=== PATIENT | female | born 1965 | race Caucasian/White ===

== ENCOUNTER 2017-04-23 20:41 | Emergency (ER) | payer OTHER ==
[~2017-04-23] VITALS: Ht 162.6 cm; Wt 68.0 kg
--- NOTE | 2017-04-23 21:01 | PHYS DOC ---
Adult General Chief Complaint Chief Complaint: Palpitations HPI HPI Patient is a 51 year old F who presents with heart palpitations for the past 5 days. Patient states she's been having increasing episodes of heart palpitations where she describes her heart racing and causing chest pain that lasts for less than a minute. Patient states it is not related to food or exercise. Patient states she usually drinks 1 caffeinated drink a day. Patient denies any heart history. Patient denies any risk factors for DVT. Patient does not smoke. Patient is asymptomatic in the emergency room. Patient came the emergency room tonight because her family doctor sent her. Review of Systems Review of Systems GEN: Denies fevers, chills, sweats HEENT: Denies blurred vision, sore throat CV: Palpitations RESP: Denies shortness of air, cough GI: Denies n/v/d NEURO: Denies confusion, dizziness MSK: Denies weakness, joint pain/swelling Physical Exam Physical Exam GEN.: No apparent distress. Alert and oriented. HEENT: Head is normocephalic, atraumatic NECK: Supple. LUNGS: CTAB. HEART: RRR, S1, S2 present. Peripheral pulses intact ABDOMEN: Soft, nontender. Positive bowel sounds. EXTREMITIES: Without any cyanosis. NEUROLOGIC: Normal speech, normal tone PSYCHIATRIC: Normal affect, normal mood. SKIN: No ulcerations Current Patient Data Lab Results Laboratory Tests Test 04/23/17 21:05 White Blood Count 8.7 x10^3/uL Red Blood Count 4.47 x10^6/uL Hemoglobin 13.5 g/dL Hematocrit 39.7 % Mean Corpuscular Volume 89 fL Mean Corpuscular Hemoglobin 30 pg Mean Corpuscular Hemoglobin Concent 34 g/dL Red Cell Distribution Width 12.7 % Platelet Count 221 x10^3/uL Neutrophils (%) (Auto) 56 % Lymphocytes (%) (Auto) 35 % Monocytes (%) (Auto) 8 % Eosinophils (%) (Auto) 1 % Basophils (%) (Auto) 1 % Neutrophils # (Auto) 4.9 x10^3uL Lymphocytes # (Auto) 3.0 x10^3/uL Monocytes # (Auto) 0.6 x10^3/uL Eosinophils # (Auto) 0.1 x10^3/uL Basophils # (Auto) 0.0 x10^3/uL Sodium Level 141 mmol/L Potassium Level 3.6 mmol/L Chloride Level 104 mmol/L Carbon Dioxide Level 27 mmol/L Anion Gap 10 Blood Urea Nitrogen 9 mg/dL Creatinine 0.8 mg/dL Estimated GFR (Cockcroft-Gault) 76.2 BUN/Creatinine Ratio 11 Glucose Level 107 mg/dL Calcium Level 8.6 mg/dL Magnesium Level 2.1 mg/dL Total Bilirubin 0.5 mg/dL Aspartate Amino Transf (AST/SGOT) 13 U/L Alanine Aminotransferase (ALT/SGPT) 15 U/L Alkaline Phosphatase 88 U/L Troponin I Quantitative < 0.017 ng/mL Total Protein 7.7 g/dL Albumin 3.7 g/dL Albumin/Globulin Ratio 0.9 EKG EKG 2108: EKG shows normal sinus rhythm rate of 65 no STEMI 2244: Repeat EKG shows normal sinus rhythm rate of 59 no STEMI [] Radiology/Procedures Radiology/Procedures Chest x-ray NAD [] Course & Med Decision Making Course & Med Decision Making Pertinent Labs and Imaging studies reviewed. (See chart for details) ED course: Patient was seen and examined the emergency room cart workup was ordered 2240: Patient had a short run of palpitations however on reexamination she is asymptomatic a repeat EKG was ordered MDM: After reviewing the chart, CC/HPI/PMH, physical exam, [lab results], [ radiological results], I do not believe the patient have an acute WI (HEART score = 0), PE (PERC neg), and low suspicion for thoracic aortic dissection. Recommended patient follow-up with PCP for Holter monitor to further evaluate her for her palpitations. Patient stable for discharge. Additional verbal discharge instructions were provided to the patient and that if symptoms get worse or any new symptoms arise that are worrisome to the patient she is to return to the emergency room immediately [] Dragon Disclaimer Dragon Disclaimer This chart was dictated in whole or in part using Voice Recognition software in a busy, high-work load, and often noisy Emergency Department environment. It may contain unintended and wholly unrecognized errors or omissions. Departure Departure: Impression: Primary Impression: Heart palpitations Disposition: HOME, SELF-CARE Condition: IMPROVED Patient Instructions: Palpitations, [id number] Additional Instructions: Please follow up with her family doctor next one to 2 days VENTURA RAYO DO Apr 23, 2017 21:01
--- NOTE | 2017-04-23 21:15 | EKG ---
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
[2017-04-23 21:21] LABS: BASO % 1 % (0-3); EOS # 0.1 x10^3/uL (0.0-0.7); EOS % 1 % (0-3); HEMATOCRIT 39.7 % (36.0-47.0); HEMOGLOBIN 13.5 g/dL (12.0-15.5); LYMPH % 35 % (24-48); MEAN CORPUSCULAR HEMOGLOBIN 30 pg (25-35); MEAN CORPUSCULAR HGB CONC 34 g/dL (31-37); MEAN CORPUSCULAR VOLUME 89 fL (79-100); MONO # 0.6 x10^3/uL (0.0-1.1); MONO % 8 % (0-9); NEUT # 4.9 x10^3uL (1.8-7.7); NEUT % 56 % (31-73); PLATELET COUNT 221 x10^3/uL (140-400); RED BLOOD COUNT 4.47 x10^6/uL (3.50-5.40); RED CELL DISTRIBUTION WIDTH 12.7 % (11.5-14.5); WHITE BLOOD COUNT 8.7 x10^3/uL (4.0-11.0)
[2017-04-23 21:45] LABS: ALBUMIN 3.7 g/dL (3.4-5.0); ALBUMIN/GLOBULIN RATIO 0.9 (1.0-1.7); CALCIUM 8.6 mg/dL (8.5-10.1); CREATININE 0.8 mg/dL (0.6-1.0); GFR 76.2; MAGNESIUM 2.1 mg/dL (1.8-2.4); POTASSIUM 3.6 mmol/L (3.5-5.1); TOTAL BILIRUBIN 0.5 mg/dL (0.2-1.0); TOTAL PROTEIN 7.7 g/dL (6.4-8.2)
[2017-04-23 22:18] VITALS: BP 109/80
--- NOTE | 2017-04-24 02:02 | EKG ---
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
--- NOTE | 2017-04-24 08:08 | RAD ---
2 view CXR: Clinical indications: Chest pain and palpitations tonight. Findings: No acute lung infiltrate or pleural effusion or pulmonary edema or lung mass or pneumothorax is seen. The heart size, pulmonary vasculature, mediastinum and both bee are unremarkable. The osseous structures appear intact. Impression: No acute radiographic abnormality is seen.
== END 2017-04-23 23:21 | disposition home or self-care (01) ==
LOC: ER 20:41
DX: R00.2 Palpitations (principal)
CPT/HCPCS: 36415; 71020; 80053; 83735; 84484; 85027; 93005; 99285-25

== ENCOUNTER 2020-07-21 00:36 | Emergency (ER) | payer OTHER ==
[~2020-07-21] VITALS: Ht 162.6 cm; Wt 80.5 kg
[2020-07-21 00:45] VITALS: BP 140/70
[2020-07-21] MEDS ORDERED: DEXAMETHASONE SOD PHOS 4 MG/ML VIAL. IVP ONE (01:15)
[2020-07-21 01:18] LABS: BASO % 0 % (0-3); EOS # 0.1 x10^3/uL (0.0-0.7); EOS % 2 % (0-3); HEMATOCRIT 38.3 % (36.0-47.0); HEMOGLOBIN 12.5 g/dL (12.0-15.5); LYMPH # 2.8 x10^3/uL (1.0-4.8); LYMPH % 33 % (24-48); MEAN CORPUSCULAR HEMOGLOBIN 29 pg (25-35); MEAN CORPUSCULAR HGB CONC 33 g/dL (31-37); MEAN CORPUSCULAR VOLUME 90 fL (79-100); MONO # 0.6 x10^3/uL (0.0-1.1); MONO % 7 % (0-9); NEUT # 4.8 x10^3uL (1.8-7.7); NEUT % 58 % (31-73); PLATELET COUNT 240 x10^3/uL (140-400); RED BLOOD COUNT 4.25 x10^6/uL (3.50-5.40); RED CELL DISTRIBUTION WIDTH 13.2 % (11.5-14.5); WHITE BLOOD COUNT 8.3 x10^3/uL (4.0-11.0)
[2020-07-21 01:27] LABS: CALCIUM 9.4 mg/dL (8.5-10.1); CREATININE 0.9 mg/dL (0.6-1.0); GFR 65.8; POTASSIUM 3.9 mmol/L (3.5-5.1)
--- NOTE | 2020-07-21 01:29 | PHYS DOC ---
Past History Past Medical History: Anxiety, Arthritis, Depression, Fibromyalgia, Hypothyroid, Other Additional Past Medical Histor: VERTIGO, MAST CELL ACTIVATION SYNDROME Past Surgical History: Cholecystectomy, , Hysterectomy Alcohol Use: Sober Drug Use: None General Adult EDM: Chief Complaint: DIZZY/LIGHT HEADED HPI: HPI: 54-year-old female presents with dizziness and vomiting. Patient has had longstanding issues with vertigo. Her dizziness is a room spinning sensation. It is exacerbated by certain head movements. It started this evening while she was sitting on the couch watching TV. She took prednisone that her doctor prescribed as well as Zofran, but she still had vomiting. She believes she vomited up the prednisone. She decided to come to the emergency room because usually when she started to have vomiting her exacerbation is more severe and requires IV hydration and possibly other medications. She denies fever or c hills. She has been feeling a bit under the weather with nondescript fatigue with no other specific symptoms. She has been completely worked up by ENT. Review of Systems: Review of Systems: Constitutional: Denies fever or chills. Fatigue Eyes: Denies change in visual acuity HENT: Denies nasal congestion or sore throat Respiratory: Denies cough or shortness of breath Cardiovascular: Denies chest pain or edema GI: Denies abdominal pain, nausea, vomiting, bloody stools or diarrhea : Denies dysuria Musculoskeletal: Denies back pain or joint pain Integument: Denies rash Neurologic: Dizziness. Denies headache, focal weakness or sensory changes Endocrine: Denies polyuria or polydipsia Lymphatic: Denies swollen glands Psychiatric: Denies depression or anxiety Current Medications: Current Meds: Current Medications Medications (Trade) Dose Ordered Sig/Ruth Start Time Stop Time Status Last Admin Dose Admin Dexamethasone Sodium Phosphate (Decadron) 4 mg 1X ONCE 07/21/20 01:15 07/21/20 01:16 DC 07/21/20 01:07 4 MG Diphenhydramine HCl (Benadryl) 25 mg 1X ONCE 07/21/20 01:30 07/21/20 01:31 07/21/20 01:02 25 MG Sodium Chloride 1,000 ml @ 1,000 mls/hr 1X ONCE 07/21/20 01:30 07/21/20 02:29 07/21/20 01:01 1,000 MLS/HR Allergies: Allergies: Allergies Coded Allergies Type Severity Reaction Last Updated Verified Penicillins Allergy Intermediate Hives 07/21/20 Yes Physical Exam: PE: Constitutional: Well developed, well nourished, no acute distress, non-toxic appearance. [] HENT: Normocephalic, atraumatic, bilateral external ears normal, oropharynx moist, no oral exudates, nose normal. Right tympanic membrane normal. Left ear left upper quadrant of the eardrum erythematous. Tenderness with otoscope exam. [] Eyes: PERRLA, EOMI, conjunctiva normal, no discharge. [] Neck: Normal range of motion, no tenderness, supple, no stridor. [] Cardiovascular: Heart rate regular rhythm, no murmur [] Lungs & Thorax: Bilateral breath sounds clear to auscultation [] Abdomen: Bowel sounds normal, soft, no tenderness, no masses, no pulsatile masses. [] Skin: Warm, dry, no erythema, no rash. [] Back: No tenderness, no CVA tenderness. [] Extremities: No tenderness, no cyanosis, no clubbing, ROM intact, no edema. [] Neurologic: Alert and oriented X 3, normal motor function, normal sensory f unction, no focal deficits noted. [] Psychologic: Affect normal, judgement normal, mood normal. [] Current Patient Data: Labs: Laboratory Tests Test 07/21/20 01:00 White Blood Count 8.3 x10^3/uL (4.0-11.0) Red Blood Count 4.25 x10^6/uL (3.50-5.40) Hemoglobin 12.5 g/dL (12.0-15.5) Hematocrit 38.3 % (36.0-47.0) Mean Corpuscular Volume 90 fL (79-100) Mean Corpuscular Hemoglobin 29 pg (25-35) Mean Corpuscular Hemoglobin Concent 33 g/dL (31-37) Red Cell Distribution Width 13.2 % (11.5-14.5) Platelet Count 240 x10^3/uL (140-400) Neutrophils (%) (Auto) 58 % (31-73) Lymphocytes (%) (Auto) 33 % (24-48) Monocytes (%) (Auto) 7 % (0-9) Eosinophils (%) (Auto) 2 % (0-3) Basophils (%) (Auto) 0 % (0-3) Neutrophils # (Auto) 4.8 x10^3uL (1.8-7.7) Lymphocytes # (Auto) 2.8 x10^3/uL (1.0-4.8) Monocytes # (Auto) 0.6 x10^3/uL (0.0-1.1) Eosinophils # (Auto) 0.1 x10^3/uL (0.0-0.7) Basophils # (Auto) 0.0 x10^3/uL (0.0-0.2) Vital Signs: Vital Signs Date Time Temp Pulse Resp B/P (MAP) Pulse Ox O2 Delivery O2 Flow Rate FiO2 07/21/20 00:45 97.5 72 18 140/70 (93) 97 Room Air EKG: EKG: Sinus rhythm, rate 57, normal axis, no ST elevation or depression. [] Radiology/Procedures: Radiology/Procedures: [] Impressions: INDICATION: Reason: dizziness / Spl. Instructions: / History: COMPARISON: March 2017 FINDINGS: Single view of chest obtained. Cardiac silhouette upper limits of normal in size. No definite new region of focal airspace consolidation. No gross osseous destructive lesion. IMPRESSION: * No definite focal airspace consolidation. Electronically signed by: Arie Martinez MD (07/21/2020 1:42 AM) [id number] DICTATED AND SIGNED BY: ARIE MARTINEZ MD DATE: 07/21/20 0142 CC: ELIZABETH HONG DO; ALE REID MD ~ Heart Score: Risk Factors: Risk Factors: DM, Current or recent (<one month) smoker, HTN, HLP, family history of CAD, obesity. Risk Scores: Score 0 - 3: 2.5% MACE over next 6 weeks - Discharge Home Score 4 - 6: 20.3% MACE over next 6 weeks - Admit for Clinical Observation Score 7 - 10: 72.7% MACE over next 6 weeks - Early Invasive Strategies Course & Med Decision Making: Course & Med Decision Making Pertinent Labs and Imaging studies reviewed. (See chart for details) The patient was given a liter of normal saline, 4 mg of Zofran IV, 25 mg of Benadryl IV, and 4 mg of dexamethasone IV. The patient's labs are unremarkable. Her urine drug screen is negative. Her urinalysis shows small leukocyte reese ase, 5-10 white cells, occasional epithelial cells and few bacteria. The patient also had the upper left quadrant of her left eardrum that was erythematous. She was sensitive to the exam on that side as well. Given these together, I will go ahead and treat the patient with Keflex for 7 days. She is stable for discharge at this time. [] Dragon Disclaimer: Dragon Disclaimer: This electronic medical record was generated, in whole or in part, using a voice recognition dictation system. Departure Departure: Impression: Primary Impression: Vertigo Additional Impression: UTI (urinary tract infection) Qualified Codes: N30.00 - Acute cystitis without hematuria Disposition: 01 DC HOME SELF CARE/HOMELESS Condition: STABLE Referrals: ALE REID MD (PCP) Patient Instructions: Urinary Tract Infection, Gimq-nd-Carr, Vertigo, [id number]-[id number] Scripts Cephalexin (KEFLEX) 500 Mg Capsule 1 CAP PO TID for UTI for 7 Days, #21 CAP 0 Refills Prov: ELIZABETH HONG DO 07/21/20 ELIZABETH HONG DO Jul 21, 2020 01:29
[2020-07-21] MEDS ORDERED: diphenhydrAMINE 50 MG/ML VIAL IVP ONE (01:30)
[2020-07-21] MEDS ORDERED: IV NORMAL SALINE 1,000ML 1,000 ML IV ONE (01:30)
[2020-07-21 01:33] LABS: ALBUMIN 3.5 g/dL (3.4-5.0); ALBUMIN/GLOBULIN RATIO 1.1 (1.0-1.7); TOTAL BILIRUBIN 0.2 mg/dL (0.2-1.0); TOTAL PROTEIN 6.8 g/dL (6.4-8.2)
--- NOTE | 2020-07-21 01:45 | RAD ---
INDICATION: Reason: dizziness / Spl. Instructions: / History: COMPARISON: March 2017 FINDINGS: Single view of chest obtained. Cardiac silhouette upper limits of normal in size. No definite new region of focal airspace consolidation. No gross osseous destructive lesion. IMPRESSION: * No definite focal airspace consolidation. Electronically signed by: Bird Martinez MD (07/21/2020 1:42 AM) [id number]
[2020-07-21] MEDS ORDERED: ONDANSETRON PF 4 MG/2 ML VIAL. IVP ONE (02:00)
[2020-07-21 02:25] LABS: BARBITURATES NEG (NEG); BENZODIAZEPINES NEG (NEG); CANNABINOIDS NEG (NEG); COCAINE NEG (NEG); METHADONE NEG (NEG); OPIATES NEG (NEG); PHENCYCLIDINE NEG (NEG)
[2020-07-21 02:27] LABS: BILIRUBIN,URINE NEG (NEG); CLARITY,URINE CLEAR; COLOR,URINE YELLOW; GLUCOSE,URINE NEG (NEG); NITRITE,URINE NEG (NEG); RBC,URINE 0 /HPF (0-2); UROBILINOGEN,URINE 0.2 mg/dL (0.2 mg/dL)
[2020-07-21 02:28] LABS: AMPHETAMINE/METHAMPHETAMINE NEG (NEG); BACTERIA,URINE FEW /HPF (0-FEW); SQUAMOUS EPITHELIAL CELL,UR OCC /LPF
[2020-07-21] MEDS ORDERED: CEPH-264 PO (02:40)
[2020-07-21] MEDS ORDERED: CEPHALEXIN 250 MG CAPSULE PO ONE (03:00)
--- NOTE | 2020-07-21 17:15 | EKG ---
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
== END 2020-07-21 02:50 | disposition home or self-care (01) ==
LOC: ER 00:36
DX: N30.00 Acute cystitis without hematuria (principal); R42 Dizziness and giddiness; R11.10 Vomiting, unspecified; R20.2 Paresthesia of skin; L53.9 Erythematous condition, unspecified; F41.9 Anxiety disorder, unspecified; M19.90 Unspecified osteoarthritis, unspecified site; F32.9 Major depressive disorder, single episode, unspecified; M79.7 Fibromyalgia; E03.9 Hypothyroidism, unspecified; Z98.890 Other specified postprocedural states; Z90.49 Acquired absence of other specified parts of digestive tract; Z90.710 Acquired absence of both cervix and uterus; Z88.0 Allergy status to penicillin
CPT/HCPCS: 36415; 71045; 80053; 80307; 81001; 84484; 85025; 87086; 93005; 96361; 96374; 96375; 99285; J1100; J1200; J2405; J7030

== ENCOUNTER 2020-08-22 19:50 | Emergency (ER) | payer OTHER ==
[~2020-08-22] VITALS: Ht 162.6 cm; Wt 80.5 kg
[~2020-08-22 19:50] MED LIST: CEPH-264 PO
[2020-08-22] MEDS ORDERED: ONDANSETRON ODT 4 MG TAB.RAPDIS ONE (19:55)
[2020-08-22] MEDS ORDERED: ONDANSETRON PF 4 MG/2 ML VIAL. ONE (20:00)
[2020-08-22] MEDS ORDERED: MECLIZINE 12.5 MG TABLET. PO ONE (20:15)
[2020-08-22] MEDS ORDERED: ONDANSETRON PF 4 MG/2 ML VIAL. IV ONE (20:15)
[2020-08-22] MEDS ORDERED: ONDANSETRON PF 4 MG/2 ML VIAL. IVP ONE (20:15)
[2020-08-22] MEDS ORDERED: IV NORMAL SALINE 1,000ML 1,000 ML IV ONE (20:15)
--- NOTE | 2020-08-22 20:23 | PHYS DOC ---
Past History Past Medical History: Anxiety, Arthritis, Depression, Fibromyalgia, Hypothyroid, Other Additional Past Medical Histor: VERTIGO, MAST CELL ACTIVATION SYNDROME Past Surgical History: Cholecystectomy, , Hysterectomy Alcohol Use: Sober Drug Use: None General Adult EDM: Chief Complaint: DIZZY/LIGHT HEADED HPI: HPI: Patient is a 54-year-old female coming in for vertigo and vomiting. Patient states she has a long history of recurrent symptoms, last time she had to come to the ER was about 1 month ago. Tried taking her home medicine regimen but was unable to get control of the vomiting. Patient states she is worked up by her ENT doctor and infectious disease, they believe her recurrent vertigo is associated with her mast cell activation. Says she otherwise is well and has been sleeping well, has occasional headaches but not today. Was sitting in the kitchen talking to her children symptoms started. Denies any recent head injury, fevers. Denies any weakness or paresthesias. Review of Systems: Review of Systems: Constitutional: Denies fever or chills Eyes: Denies change in visual acuity HENT: Denies nasal congestion or sore throat, bilateral ear fullness Respiratory: Denies cough or shortness of breath Cardiovascular: Denies chest pain or edema GI: Denies abdominal pain, bloody stools or diarrhea. Nausea and vomiting : Denies dysuria Musculoskeletal: Denies back pain or joint pain Integument: Denies rash Neurologic: Denies headache, focal weakness or sensory changes. Vertigo Endocrine: Denies polyuria or polydipsia Lymphatic: Denies swollen glands Psychiatric: Denies depression or anxiety Current Medications: Current Meds: Current Medications Medications (Trade) Dose Ordered Sig/Ruth Start Time Stop Time Status Last Admin Dose Admin Dexamethasone Sodium Phosphate (Decadron) 4 mg 1X ONCE 08/22/20 20:30 08/22/20 20:31 UNV Diphenhydramine HCl (Benadryl) 25 mg 1X ONCE 08/22/20 20:30 08/22/20 20:31 UNV Meclizine HCl (Antivert) 25 mg 1X ONCE 08/22/20 20:15 08/22/20 20:16 DC 08/22/20 20:01 25 MG Ondansetron HCl (Zofran Odt) 4 mg STK-MED ONCE 08/22/20 19:55 08/22/20 19:55 DC Ondansetron HCl (Zofran) 4 mg 1X ONCE 08/22/20 20:15 08/22/20 20:16 UNV 08/22/20 20:15 4 MG Sodium Chloride 1,000 ml @ 1,000 mls/hr 1X ONCE 08/22/20 20:15 08/22/20 21:14 UNV 08/22/20 20:15 1,000 MLS/HR Allergies: Allergies: Allergies Coded Allergies Type Severity Reaction Last Updated Verified Penicillins Allergy Intermediate Hives 07/21/20 Yes Physical Exam: PE: Constitutional: Well developed, well nourished, no acute distress, non-toxic appearance. [] HENT: Normocephalic, atraumatic, bilateral external ears normal, oropharynx moist, no oral exudates, nose normal. [] Bilateral TMs normal Eyes: PERRLA, EOMI, conjunctiva normal, no discharge. [] Neck: Normal range of motion, no tenderness, supple, no stridor. [] Cardiovascular:Heart rate regular rhythm, no murmur [] Lungs & Thorax: Bilateral breath sounds clear to auscultation [] Abdomen: Bowel sounds normal, soft, no tenderness, no masses, no pulsatile masses. [] Skin: Warm, dry, no erythema, no rash. [] Back: No tenderness, no CVA tenderness. [] Extremities: No tenderness, no cyanosis, no clubbing, ROM intact, no edema. [] Neurologic: Alert and oriented X 3, normal motor function, normal sensory function, no focal deficits noted. [] Psychologic: Affect normal, judgement normal, mood normal. [] Current Patient Data: Vital Signs: Vital Signs Date Time Temp Pulse Resp B/P (MAP) Pulse Ox O2 Delivery O2 Flow Rate FiO2 08/22/20 19:52 97.8 94 16 125/82 (96) 96 Room Air EKG: EKG: [] Radiology/Procedures: Radiology/Procedures: [] Heart Score: Risk Factors: Risk Factors: DM, Current or recent (<one month) smoker, HTN, HLP, family history of CAD, obesity. Risk Scores: Score 0 - 3: 2.5% MACE over next 6 weeks - Discharge Home Score 4 - 6: 20.3% MACE over next 6 weeks - Admit for Clinical Observation Score 7 - 10: 72.7% MACE over next 6 weeks - Early Invasive Strategies Course & Med Decision Making: Course & Med Decision Making Patient with baseline symptoms of the been evaluated and worked up in the past. Exam consistent with peripheral vertigo. Vomiting improved but still having vertigo with movement after meclizine. Gave Phenergan suppository and symptoms almost completely resolved [] Gerson Disclaimer: Dragkalyani Disclaimer: This electronic medical record was generated, in whole or in part, using a voice recognition dictation system. Departure Departure: Impression: Primary Impression: Vertigo Disposition: 01 DC HOME SELF CARE/HOMELESS Condition: IMPROVED Referrals: ALE REID MD (PCP) Additional Instructions: What happens during the home Cathy maneuver? Start by sitting on a bed. Turn your head 45 degrees to the right. Quickly lie back, keeping your head turned. ... Turn your head 90 degrees to the left, without raising it. ... Turn your head and body another 90 degrees to the left, into the bed. ... Sit up on the left side. Scripts Meclizine Hcl (MECLIZINE HCL) 25 Mg Tablet 25 MG PO PRN Q8HRS PRN for DIZZINESS for 10 Days, #30 TAB Prov: CLIFF OLIVAREZ MD 08/22/20 Ondansetron Hcl (ZOFRAN) 4 Mg Tablet 1 TAB PO PRN Q6HRS PRN for NAUSEA for 10 Days, #20 TAB Prov: CLIFF OLIVAREZ MD 08/22/20 Promethazine HCl (Promethazine HCl) 50 Mg Supp.rect 50 MG RC PRN Q6-8HRS PRN for VOMITING for 10 Days, #30 SUPP.RECT Prov: CLIFF OLIVAREZ MD 08/22/20 CLIFF OLIVAREZ MD Aug 22, 2020 20:23
[2020-08-22] MEDS ORDERED: diphenhydrAMINE 50 MG/ML VIAL IVP ONE (20:30)
[2020-08-22] MEDS ORDERED: DEXAMETHASONE SOD PHOS 10 MG/ML VIAL. IV ONE (20:30)
[2020-08-22] MEDS ORDERED: DEXAMETHASONE SOD PHOS 4 MG/ML VIAL. IV ONE (20:30)
[2020-08-22 20:36] LABS: BASO # 0.1 x10^3/uL (0.0-0.2); BASO % 0 % (0-3); EOS # 0.1 x10^3/uL (0.0-0.7); EOS % 1 % (0-3); HEMOGLOBIN 13.2 g/dL (12.0-15.5); LYMPH # 3.2 x10^3/uL (1.0-4.8); LYMPH % 26 % (24-48); MEAN CORPUSCULAR HEMOGLOBIN 30 pg (25-35); MEAN CORPUSCULAR HGB CONC 32 g/dL (31-37); MEAN CORPUSCULAR VOLUME 93 fL (79-100); MONO # 0.5 x10^3/uL (0.0-1.1); MONO % 4 % (0-9); NEUT # 8.5 x10^3uL (1.8-7.7); NEUT % 69 % (31-73); PLATELET COUNT 281 x10^3/uL (140-400); RED BLOOD COUNT 4.43 x10^6/uL (3.50-5.40); RED CELL DISTRIBUTION WIDTH 14.1 % (11.5-14.5); WHITE BLOOD COUNT 12.3 x10^3/uL (4.0-11.0)
[2020-08-22 20:39] LABS: CREATININE 0.9 mg/dL (0.6-1.0); GFR 65.8; POTASSIUM 3.6 mmol/L (3.5-5.1)
[2020-08-22 20:45] LABS: ALBUMIN 3.6 g/dL (3.4-5.0); ALBUMIN/GLOBULIN RATIO 0.9 (1.0-1.7); MAGNESIUM 2.1 mg/dL (1.8-2.4); TOTAL BILIRUBIN 0.4 mg/dL (0.2-1.0); TOTAL PROTEIN 7.7 g/dL (6.4-8.2)
[2020-08-22 21:33] LABS: BILIRUBIN,URINE NEG (NEG); CLARITY,URINE HAZY; COLOR,URINE YELLOW; GLUCOSE,URINE NEG (NEG)
[2020-08-22 21:34] LABS: BACTERIA,URINE 0 /HPF (0-FEW); NITRITE,URINE NEG (NEG); RBC,URINE 0 /HPF (0-2); SQUAMOUS EPITHELIAL CELL,UR MANY /LPF; UROBILINOGEN,URINE 0.2 mg/dL (0.2 mg/dL); WBC,URINE RARE /HPF (0-4)
[2020-08-22] MEDS ORDERED: DEXAMETHASONE SOD PHOS 4 MG/ML VIAL. IVP ONE (21:45)
[2020-08-22] MEDS ORDERED: PROMETHAZINE 25 MG SUPP.RECT. PR ONE (21:45)
[2020-08-22] MEDS ORDERED: PROM50SU7 RC (23:09)
[2020-08-22] MEDS ORDERED: MECL-75 PO (23:09)
[2020-08-22] MEDS ORDERED: ONDA4TAB7 PO (23:09)
[2020-08-22 23:21] VITALS: BP 121/71
== END 2020-08-22 23:40 | disposition home or self-care (01) ==
LOC: ER 19:50
DX: R42 Dizziness and giddiness (principal); R11.10 Vomiting, unspecified; R51.9 Headache, unspecified; F41.9 Anxiety disorder, unspecified; M19.90 Unspecified osteoarthritis, unspecified site; M79.7 Fibromyalgia; E03.9 Hypothyroidism, unspecified; Z88.0 Allergy status to penicillin
CPT/HCPCS: 36415; 80053; 81001; 83735; 85025; 96361; 96374; 96375; 96376; 99285; J1100; J1200; J2405; J7030; J8597